=== PATIENT | male | born 1945 | race Caucasian/White ===

== ENCOUNTER 2016-03-21 10:46 | Day surgery (SDC) | payer MEDICARE, OTHER ==
[2016-03-17 13:09] VITALS: BMI 31.4
[~2016-03-21 10:46] MED LIST: DEXAMETHASONE SOD PHOSPHATE 10 MG/ML 1 ML VIAL IV ONE; LIDOCAINE 1% 20 ML VIAL (10MG/ML) FOR IV START INTRADERMA PRN; ONDANSETRON 4 MG/2 ML VIAL IVP ONE; SCOPOLAMINE 1.5MG/72HR PATCH TRANSDERM ONE; ceFAZolin 3 GM in SODIUM CHLORIDE 0.9% 100 ML IVPB ONE
[2016-03-21] MEDS: LACTATED RINGERS 1,000 ML IV ONE ×2 (12:05→12:50)
[2016-03-21] MEDS ORDERED: LIDOCAINE 1% 20 ML VIAL (10MG/ML) FOR IV START INTRADERMA ONE (12:06)
[2016-03-21] MEDS ORDERED: HEPARIN SODIUM,PORCINE 5,000 UNIT/ML 1 ML VIAL SQ ONE (12:29)
--- NOTE | 2016-03-21 12:32 | P.GSHP ---
History of Present Illness H&P Date: 03/21/16 Chief Complaint: Cholelithiasis, cholecystitis This is a 70-year-old male who was recently seen in the [facility] emergency room. He is diagnosed with cholecystitis and cholelithiasis. Patient had ultrasound performed showed evidence of cholelithiasis. He presents today for laparoscopic cholecystectomy. Past Medical History Past Medical History: GERD/Reflux, Hyperlipidemia, Hypertension, Osteoarthritis (OA) Additional Past Medical History / Comment(s): In 2000 hx. of kidney stones. History of Any Multi-Drug Resistant Organisms: None Reported Past Surgical History: Tonsillectomy Additional Past Surgical History / Comment(s): Pin in L side side of jaw & cheek. Past Anesthesia/Blood Transfusion Reactions: No Reported Reaction Past Psychological History: No Psychological Hx Reported Smoking Status: Current some day smoker Past Alcohol Use History: Occasional Additional Past Alcohol Use History / Comment(s): 1 cigar q 2 weeks. Past Drug Use History: None Reported - Past Family History Mother Family Medical History: Unable to Obtain Additional Family Medical History / Comment(s): Was adopted. Medications and Allergies Home Medications Medication Instructions Recorded Confirmed Type Aspirin 81 mg PO DAILY 03/17/16 03/17/16 History Ibuprofen [Motrin] 800 mg PO DAILY PRN 03/17/16 03/17/16 History Lisinopril [Prinivil] 20 mg PO DAILY 03/17/16 03/17/16 History Omeprazole [PriLOSEC] 20 mg PO AC-BRKFST 03/17/16 03/17/16 History Simvastatin [Zocor] 20 mg PO DAILY 03/17/16 03/17/16 History clonazePAM [Clonazepam] 1 mg PO DAILY 03/17/16 03/17/16 History valACYclovir HCL [Valacyclovir] 500 mg PO DAILY 03/17/16 03/17/16 History Allergies Allergy/AdvReac Type Severity Reaction Status Date / Time No Known Allergies Allergy Verified 03/21/16 11:49 Surgical - Exam Vital Signs Temp Pulse Resp BP Pulse Ox 97.6 F 76 18 147/82 98 03/21/16 11:56 03/21/16 11:56 03/21/16 11:56 03/21/16 11:56 03/21/16 11:56 - General well developed, no distress - Eyes PERRL - ENT normal pinna - Neck no masses - Respiratory normal expansion - Cardiovascular Rhythm: regular - Abdomen Abdomen: soft, non tender Assessment and Plan Plan: Cholelithiasis Cholecystitis We'll perform laparoscopic cholecystectomy.
[2016-03-21] MEDS ORDERED: fentaNYL (PF) 50 MCG/ML 2 ML AMP ONE (12:50)
[2016-03-21] MEDS ORDERED: ePHEDrine 50 MG/ML 1 ML AMP ONE (12:50)
[2016-03-21] MEDS ORDERED: SUCCINYLCHOLINE CHLORIDE VIAL 200 MG/10 ML VIAL IV ONE (12:50)
[2016-03-21] MEDS ORDERED: LIDOCAINE 1% INJ 10MG/ML (20 ML MDV) ONE (12:50)
[2016-03-21] MEDS ORDERED: GLYCOPYRROLATE 0.2 MG/ML 2 ML VIAL ONE (12:50)
[2016-03-21] MEDS ORDERED: PROPOFOL 10 MG/ML 20 ML VIAL IV ONE (12:50)
[2016-03-21] MEDS ORDERED: NEOSTIGMINE 1 MG/ML 10 ML VIAL ONE (12:50)
[2016-03-21] MEDS ORDERED: MIDAZOLAM 2 MG/2 ML VIAL ONE (12:50)
[2016-03-21] MEDS ORDERED: ROCURONIUM BROMIDE 10 MG/ML 10 ML VIAL IV ONE (12:50)
[2016-03-21] MEDS ORDERED: ATROPINE SULFATE 0.4 MG/ML 1 ML VIAL ONE (12:50)
[2016-03-21] MEDS ORDERED: BUPIVACAIN-EPI 0.25%-1:200,000 30 ML VIAL SQ ONE ×3 (12:59)
[2016-03-21] MEDS ORDERED: LACTATED RINGERS 1,000 ML IV ONE ×2 (13:19→16:11)
--- NOTE | 2016-03-21 13:35 | P.OP ---
Date of Procedure: 03/21/16 Preoperative Diagnosis: Cholecystitis Cholelithiasis Postoperative Diagnosis: Cholecystitis Cholelithiasis Procedure(s) Performed: Laparoscopic cholecystectomy Anesthesia: MAC Surgeon: Jose Faye Estimated Blood Loss (ml): 5 Pathology: other (Gallbladder) Condition: stable Disposition: PACU Description of Procedure: The patient was placed on the operating table. The patient received a general endotracheal tube anesthesia. The patients abdomen was prepped and draped in the usual sterile fashion. Through an infraumbilical stab incision, the fascia of the anterior abdominal wall was grasped with a pair of Kochers and then the Veress needle was placed in the peritoneal cavity. Position of the Veress needle was confirmed with positive drop test. The abdomen was then insufflated. After adequate insufflation, the 10 mm trocar was placed in the peritoneal cavity. Following this the laparoscope was placed in the peritoneal cavity. The patient was placed in the head-up, right side up position and then a 5 mm trocar was placed in the right lateral and right subcostal position under direct visualization. A 8 mm trocar was placed in the epigastric position. The gallbladder was grasped in the fundus and infundibulum. Traction on the gallbladder was placed in the lateral and the cephalad positions. The triangle of Calot was visualized.. The cystic duct was bluntly dissected until the union of the cystic duct and common bile duct was seen. The cystic duct was then divided and sealed with the Harmonic scissors. A PDS Endoloop was then placed throughout the cystic duct stump. The cystic artery divided and sealed with the Harmonic scissors. The gallbladder was then removed from the liver bed using Harmonic scissors. The gallbladder was then extracted through the epigastric port site. Operative field was checked for any bleeding spots and Harmonic scissors was used to coagulate the liver bed. The abdomen was irrigated. The trocars were removed. The skin was closed using interrupted 3-0 Vicryl suture. Dermabond dressing were applied. The patient tolerated the procedure well.
[2016-03-21] MEDS: HYDROmorphone 1 MG/ML 1 ML SYRINGE IVP PRN ×4 (13:38→14:37)
[2016-03-21 13:49] VITALS: RESP 16
[2016-03-21 13:53] VITALS: TEMP 97.5
[2016-03-21] MEDS ORDERED: HYDROcodone/APAP 7.5-325MG 1 EACH TAB PO ONE (15:25)
[2016-03-21 16:11] VITALS: BP 135/91; PULSE 90
== END 2016-03-21 16:43 | disposition home or self-care (01) ==
LOC: OR 10:46
PROVIDERS: ATTEND Surgery
DX: K80.10 Calculus of gallbladder with chronic cholecystitis without obstruction (principal); K21.9 Gastro-esophageal reflux disease without esophagitis; E78.5 Hyperlipidemia, unspecified; I10 Essential (primary) hypertension; M19.90 Unspecified osteoarthritis, unspecified site; Z72.0 Tobacco use; Z79.1 Long term (current) use of non-steroidal anti-inflammatories (NSAID); Z79.82 Long term (current) use of aspirin; Z79.899 Other long term (current) drug therapy
CPT/HCPCS: 88304; 47562; J2250; J0330; J0461; J1644; J1100; J2710; J0690; J2405; J2001; J3010; J1170; J2704

== ENCOUNTER → 2017-10-25 | Outpatient (CLI) | payer MEDICARE, OTHER ==
--- NOTE | 2017-10-25 16:27 | MR ---
EXAMINATION TYPE: MR knee RT wo con DATE OF EXAM: 10/25/2017 COMPARISON: None HISTORY: Pain in right knee TECHNIQUE: Multiplanar, multisequence imaging of the right knee is performed without IV contrast. FINDINGS: MEDIAL MENISCUS: Anterior horn medial meniscus appears normal. There is oblique signal complex patter n which appears to extend to the inferior articular surface within the posterior horn medial meniscus compatible with complex tear. LATERAL MENISCUS: Anterior and posterior horns are intact without tear. CRUCIATE LIGAMENTS: The anterior and posterior cruciate ligaments are intact and unremarkable. COLLATERAL LIGAMENTS: The medial collateral ligament and lateral collateral ligament complex are inta ct and unremarkable. EXTENSOR MECHANISM: Visualized quadriceps and patellar tendons are intact. EFFUSION: Small joint effusion is present. There may be some minimal soft tissue swelling. Note is m mp of varicosities within the lower thigh within the [id number] POPLITEAL CYST: No popliteal/patel cyst. TRICOMPARTMENT SPACES: There is narrowing of the medial compartment joint space compatible some osteo arthritic degenerative change. Milder narrowing is present along the lateral compartment joint space. Patellofemoral joint space appears preserved. CARTILAGE: There is diffuse thinning of the medial lateral compartment articular cartilage, more so o n the medial side. BONE MARROW SIGNAL: No focal abnormal marrow signal is appreciated. OTHER: No additional significant abnormality is appreciated. IMPRESSION: 1. Small joint effusion. 2. Complex oblique tear posterior horn medial meniscus communication with the inferior articular surf sheldon. 3. Osteoarthritic degenerative change medial compartment
== END | disposition home or self-care (01) ==
LOC: RADMRIMAIN 09:10
PROVIDERS: ATTEND Orthopaedic Surgery
DX: S83.241A Other tear of medial meniscus, current injury, right knee, initial encounter (principal); M17.11 Unilateral primary osteoarthritis, right knee

== ENCOUNTER → 2017-11-01 | Outpatient (CLI) | payer MEDICARE, OTHER ==
[2017-11-01 14:53] LABS: Basophils # (A) 0.1 k/uL (0-0.2); Basophils % (A) 1 %; Eosinophils # (A) 0.2 k/uL (0-0.7); Eosinophils % (A) 3 %; HCT 47.8 % (39.0-53.0); HGB 15.2 gm/dL (13.0-17.5); Lymphocytes # (A) 1.8 k/uL (1.0-4.8); Lymphocytes % (A) 29 %; MCH 30.8 pg (25.0-35.0); MCHC 31.7 g/dL (31.0-37.0); MCV 97.2 fL (80.0-100.0); Mean Platelet Volume 6.7; Monocytes # (A) 0.4 k/uL (0-1.0); Monocytes % (A) 6 %; Neutrophils # (A) 3.6 k/uL (1.3-7.7); Neutrophils % (A) 59 %; Platelet Count 249 k/uL (150-450); RBC 4.92 m/uL (4.30-5.90); RDW 14.2 % (11.5-15.5); WBC 6.1 k/uL (3.8-10.6)
[2017-11-01 15:02] LABS: Potassium 4.7 mmol/L (3.5-5.1)
== END | disposition home or self-care (01) ==
LOC: LABPAT 14:02
PROVIDERS: ATTEND Orthopaedic Surgery
DX: Z01.818 Encounter for other preprocedural examination (principal); Z01.812 Encounter for preprocedural laboratory examination; M23.91 Unspecified internal derangement of right knee
CPT/HCPCS: 36415; 80051; 85025; 93005

== ENCOUNTER 2017-11-15 10:13 | Day surgery (SDC) | payer MEDICARE, OTHER ==
[2017-11-10 10:24] VITALS: BMI 32.0
--- NOTE | 2017-11-14 14:21 | HP ---
HISTORY AND PHYSICAL DATE OF SURGERY: 11/15/2017 Romero Patterson is a 72-year-old patient seen with progressive right knee pain. Treatment options were discussed. Patient elected to proceed with right knee arthroscopy. Consent regarding the procedure was obtained. PAST MEDICAL HISTORY: Hypertension, hyperlipidemia. PAST SURGICAL HISTORY: Right knee arthroscopy. . DAILY MEDICATIONS: 1. Lisinopril. 2. Omeprazole. 3. Simvastatin. ALLERGIES: None reported. SOCIAL HISTORY: Patient denies current tobacco use. PHYSICAL EVALUATION OF THE RIGHT KNEE: Range of motion is 0 to 130 degrees. Mild effusion. Tenderness along the medial joint line. Positive medial Umer's. Ligaments stable. Hip rotation without pain. Distal neurovascular exam intact. RIGHT KNEE RADIOGRAPHS: Revealed mild to moderate osteoarthritic changes. An MRI of the right knee revealed a medial meniscal tear as well as osteoarthritic changes and joint effusion. IMPRESSION: 1. Internal derangement, right knee with medial meniscal tear. 2. Hypertension. 3. Hyperlipidemia. PLAN: Right knee arthroscopy with partial meniscectomy and debridement. MMODL / IJN: [id number] /
[~2017-11-15 10:13] MED LIST changes: -DEXAMETHASONE SOD PHOSPHATE 10 MG/ML 1 ML VIAL IV ONE; +HYDROmorphone 0.5 MG/0.5 ML SYRINGE IVP PRN; +LACTATED RINGERS 1,000 ML IV SCH; -LIDOCAINE 1% 20 ML VIAL (10MG/ML) FOR IV START INTRADERMA PRN; -SCOPOLAMINE 1.5MG/72HR PATCH TRANSDERM ONE; -ceFAZolin 3 GM in SODIUM CHLORIDE 0.9% 100 ML IVPB ONE; +fentaNYL (PF) 50 MCG/ML 2 ML AMP IV PRN
[2017-11-15] MEDS ORDERED: ONDANSETRON 4 MG/2 ML VIAL ONE (11:11)
[2017-11-15] MEDS ORDERED: LIDOCAINE 1% 20 ML VIAL (10MG/ML) FOR IV START INTRADERMA ONE (11:55)
[2017-11-15] MEDS ORDERED: PROPOFOL 10 MG/ML 20 ML VIAL IV ONE (12:38)
[2017-11-15] MEDS ORDERED: SUCCINYLCHOLINE CHLORIDE 100 MG/5 ML SYR IV ONE (12:38)
[2017-11-15] MEDS ORDERED: fentaNYL (PF) 50 MCG/ML 2 ML AMP ONE (12:38)
[2017-11-15] MEDS ORDERED: MIDAZOLAM 2 MG/2 ML VIAL ONE (12:38)
[2017-11-15] MEDS ORDERED: BUPIVACAIN-EPI 0.25%-1:200,000 30 ML VIAL SQ ONE (12:38)
[2017-11-15] MEDS ORDERED: LIDOCAINE 1% INJ 10MG/ML (20 ML MDV) ONE (12:38)
[2017-11-15] MEDS ORDERED: HYDROmorphone (PF) 1 MG/ML ONE (12:38)
--- NOTE | 2017-11-15 13:25 | P.OP ---
Date of Procedure: 11/15/17 Preoperative Diagnosis: Internal derangement right knee Postoperative Diagnosis: 1. Tear medial and lateral meniscus right knee 2. Grade 4 chondromalacia medial femoral condyle right knee 3. Grade 2 chondromalacia patella right knee 4. Reactive synovitis medial, lateral and suprapatellar compartments right knee Procedure(s) Performed: 1. Arthroscopic partial medial and lateral meniscectomy right knee 2. Arthroscopic chondroplasty medial femoral condyle right knee 3. Arthroscopic microfracture medial femoral condyle right knee 4. Arthroscopic chondroplasty patella right knee 5. Arthroscopic partial synovectomy medial, lateral and suprapatellar compartments right knee Anesthesia: PEPEA, local Surgeon: Marcial Alegre Estimated Blood Loss (ml): 6 Pathology: none sent Condition: stable Disposition: PACU Indications for Procedure: 72-year-old patient seen with progressive right knee pain. After treatment options were discussed, he elected to proceed with arthroscopy. Operative Findings: see description of procedure Description of Procedure: Patient was taken to the operative suite. Patient underwent a general anesthetic by the department of anesthesia. Patient was given preoperative antibiotics. The right lower extremity was placed in a well-padded arthroscopic leg canales. The right leg was prepped and draped in the normal sterile orthopedic fashion. A lateral parapatellar and suprapatellar incision was made. Trochars were inserted. Arthroscopy was initiated. Suprapatellar pouch revealed diffuse thick reactive synovitis. The patellofemoral joint appeared to articulate congruently. There was grade 2 chondromalacia of the patella with some osteochondral tears present. The scope was guided into the medial gutter. No loose bodies or plica were identified. The scope was then guided into the medial compartment. A medial parapatellar incision was made. Trocar inserted followed by probe. There was a complex tear posterior horn medial meniscus extending into the midbody. There were grade 3/4 chondromalacia changes the medial femoral condyle with some osteochondral tears present. There was thick reactive synovitis anteriorly. I performed a partial medial meniscectomy down to stable tissue. I performed a chondroplasty of the medial femoral condyle down to stable tissue. I performed a partial synovectomy decompressing the thick reactive synovitis anteriorly. The residual meniscus was stable. There was good decompression of the synovitis. There was one area weightbearing surface medial femoral condyle measuring approximately 8 mm of exposed bone. I performed a microfracture to that area penetrating the bone which cause some bleeding in the area. The residual osteochondral surface was stable. Scope and probe were then guided into the intercondylar notch. Cruciates were identified, probed and found to be stable. The scope and probe were then guided into lateral compartment. There were some radial tears midbody lateral meniscus. There was reactive synovitis anteriorly. There was no significant chondromalacia present. The osteochondral surface was stable. I performed a partial lateral meniscectomy down to stable tissue. I performed a partial synovectomy decompressing the reactive synovitis. The residual meniscus was stable. There was good decompression of the synovitis. The scope was in guided back into the suprapatellar compartment. I introduced the motorized shaver into the super patellar compartment. I debrided some piecemeal fragments of meniscus I encountered. I performed a partial synovectomy. The residual osteochondral surface of patella was stable. There was good decompression of the synovitis. I now took one more look on the entire knee, no residual debris. Instruments were now removed from the joint. The joint was infiltrated with .25% Marcaine. Steri-Strips were applied to the portal sites. Sterile dressings were applied. The patient was placed into a SHANICE hose. No tourniquet was utilized. The patient was awakened, transferred to a bed and taken to recovery stable satisfactory condition.
[2017-11-15 13:31] VITALS: TEMP 97.7
[2017-11-15] MEDS ORDERED: LACTATED RINGERS 1,000 ML IV ONE (14:21)
[2017-11-15 14:42] VITALS: RESP 18
[2017-11-15] MEDS ORDERED: HYDROcodone/APAP 5-325MG 1 EACH TAB PO ONE (15:11)
[2017-11-15 15:46] VITALS: BP 118/73; PULSE 66
== END 2017-11-15 15:56 | disposition home or self-care (01) ==
LOC: OR 10:13
PROVIDERS: ATTEND Orthopaedic Surgery
DX: S83.241A Other tear of medial meniscus, current injury, right knee, initial encounter (principal); S83.281A Other tear of lateral meniscus, current injury, right knee, initial encounter; X58.XXXA Exposure to other specified factors, initial encounter; M22.41 Chondromalacia patellae, right knee; M65.861 Other synovitis and tenosynovitis, right lower leg; I10 Essential (primary) hypertension; F17.200 Nicotine dependence, unspecified, uncomplicated; K21.9 Gastro-esophageal reflux disease without esophagitis; E78.5 Hyperlipidemia, unspecified; Z79.899 Other long term (current) drug therapy
CPT/HCPCS: 29880; 29879; J2250; J0690; J2405; J2001; J3010; J1170 ×2; J0330; J2704

== ENCOUNTER → 2018-05-22 | Outpatient (CLI) | payer MEDICARE | END | disposition home or self-care (01) | LOC: LABPAT 14:13 | PROVIDERS: ATTEND Orthopaedic Surgery | DX: Z01.812 Encounter for preprocedural laboratory examination (principal) | CPT/HCPCS: 87070 ==

== ENCOUNTER 2018-06-11 08:59 | Inpatient (IN) | payer MEDICARE ==
--- NOTE | 2018-06-10 13:26 | HP ---
HISTORY AND PHYSICAL REASON FOR ADMISSION: Surgery is scheduled for 06/11/2018 Romero Patterson is a 73-year-old patient seen symptomatic with right knee osteoarthritis. We discussed treatment options. He elected to proceed with right total knee arthroplasty. Consent was obtained. Medical clearance provided by Dr. Connolly. PAST MEDICAL HISTORY: Hypertension, hyperlipidemia, gastroesophageal reflux disease. PAST SURGICAL HISTORY: Right knee arthroscopy. DAILY MEDICATIONS: Lisinopril, omeprazole, simvastatin. ALLERGIES: None. SOCIAL HISTORY: Denies current tobacco use. PHYSICAL EXAMINATION: Evaluation of the right knee is range of motion is 0 to 125 degrees. Tenderness along the medial joint line. Crepitus medial and patellofemoral compartments with range of motion. Pain with patellofemoral compression. Ligaments stable. Hip rotation without pain. Distal neurovascular exam is intact. RADIOGRAPHS: Radiographs of the right knee revealed moderate to severe medial compartment and moderate patellofemoral compartment osteoarthritis. IMPRESSION: 1. Right knee osteoarthritis. 2. Hypertension. 3. Hyperlipidemia. 4. Gastroesophageal reflux disease. PLAN: Right total knee arthroplasty. Surgery scheduled for 06/11/2018. MMODL / IJN: [id number] /
[~2018-06-11 08:59] MED LIST changes: +ACETAMINOPHEN TAB 500 MG TAB PO ONE; +DEXAMETHASONE SOD PHOSPHATE 10 MG/ML 1 ML VIAL IV ONE; -HYDROmorphone 0.5 MG/0.5 ML SYRINGE IVP PRN; -LACTATED RINGERS 1,000 ML IV SCH; +MELOXICAM 7.5 MG TAB PO ONE; +MIDAZOLAM (PF) 2 MG/2 ML VIAL IV PRN; +TRANEXAMIC ACID 1,000 MG in SODIUM CHLORIDE 0.9% 100 ML IVPB ONE; +ceFAZolin 3 GM in SODIUM CHLORIDE 0.9% 100 ML IVPB ONE; -fentaNYL (PF) 50 MCG/ML 2 ML AMP IV PRN
[2018-06-11] MEDS ORDERED: LIDOCAINE 1% 20 ML VIAL (10MG/ML) FOR IV START INTRADERMA ONE (09:46)
[2018-06-11] MEDS: LACTATED RINGERS 1,000 ML IV SCH ×3 (09:46→22:28)
[2018-06-11] MEDS ORDERED: ROPIVACAINE 246.25 MG, EPINEPHrine 0.5 MG, KETOROLAC 30 MG, cloNIDine HCL/PF 80 MCG, WA... MISCELLANE ONE ×5 (09:55)
[2018-06-11] MEDS ORDERED: fentaNYL (PF) 50 MCG/ML 2 ML AMP IVP ONE (10:01)
[2018-06-11] MEDS ORDERED: PROPOFOL 10 MG/ML 20 ML VIAL IV ONE (11:04)
[2018-06-11] MEDS ORDERED: MIDAZOLAM 2 MG/2 ML VIAL ONE (11:04)
[2018-06-11] MEDS ORDERED: SODIUM CHLORIDE 0.9% 100 ML BAG ONE (11:04)
[2018-06-11] MEDS ORDERED: fentaNYL (PF) 50 MCG/ML 2 ML AMP ONE (11:04)
[2018-06-11] MEDS ORDERED: TRANEXAMIC ACID 1,000 MG/10 ML VIAL ONE (11:04)
[2018-06-11] MEDS ORDERED: ceFAZolin 3,000 MG in SODIUM CHLORIDE 0.9% IRRIGATIO 3,000 ML IRRIGATION ONE (11:40)
[2018-06-11] MEDS ORDERED: LACTATED RINGERS 1,000 ML IV ONE (12:41)
--- NOTE | 2018-06-11 13:29 | P.OP ---
Date of Procedure: 06/11/18 Preoperative Diagnosis: Right knee osteoarthritis Postoperative Diagnosis: Same Procedure(s) Performed: Right total knee arthroplasty Implants: 1. Microport evolution size 8 right cemented femur 2. Microport evolution size 8+ cemented tibial baseplate 3. Microport evolution size 8 MP CS 12 mm polyethylene tibial insert 4. Microport advance 41 mm all polyethylene cemented patella Anesthesia: regional (Adductor canal catheter), local, spinal Surgeon: Marcial Alegre Chief Of Party #1: Jensen Fisher Estimated Blood Loss (ml): 40 Pathology: other (Bone) Condition: stable Disposition: PACU Indications for Procedure: 73-year-old patient seen with symptomatic right knee osteoarthritis. After treatment options were discussed, he elected to proceed with total knee arthroplasty. Operative Findings: See description of procedure Description of Procedure: Patient was taken to the operative suite after having an adductor canal catheter placed by the department of anesthesia for postoperative pain management. Patient underwent a spinal anesthetic by the department of anesthesia. Patient was given preoperative IV intake antibiotics and TXA. A well-padded tourniquet was placed about the right lower extremity. The lower extremity was then prepped and draped in the normal sterile orthopedic fashion. The extremity was elevated, a tourniquet was insufflated to 300. A standard anterior incision was made sharply through skin. Dissection was taken down through the subcutaneous soft tissues down to the extensor mechanism. A medial arthrotomy was performed, patella was everted and knee was flexed. There was advanced osteoarthritis noted. I introduced my distal intramedullary femoral drill. I then introduced the distal femoral cutting jig. Jacob ORTIZ secured the cutting jig with 2 pins. I held retractors in position while Jacob ORTIZ performed the distal femoral resection through the guide area we now removed her distal femoral cutting guide. We now placed our 4-in-1 femoral cutting block and positioned and it was secured with 2 pins by Jacob ORTIZ while I held the block in position. The distal femoral finishing was now completed. A proximal tibial cutting guide was positioned. I held the guide in the appropriate position with both hands well Jacob ORTIZ inserted stabilizing pins into the guide. Proximal tibial cut was made. We now placed a trial femoral component into position, along with an appropriate size tibial tray and insert. We now took the knee through range of motion and had full extension good flexion and good overall soft tissue balance noted. The patella was everted and stabilized with 2 towel clips held by Jacob ORTIZ while I performed a flush with patellar quad tendon utilizing a fresh sawblade. We templated the patella, appropriate drill holes were made. An appropriate trial patella was positioned, knee was taken through full range of motion with the patella tracking very nicely. The trial patella was removed. Drill holes were made through the femoral component. All trial components were removed after marking off the appropriate rotation of the tibia. Retractors were now positioned along the proximal tibia. An appropriate keel punch was made with the appropriate size tibial guide by myself on Jacob ORTIZ assisted by holding retractors. At this point appropriate size implants were chosen and opened. The joint was irrigated copiously with pulse lavage mechanical irrigation. The posterior capsule was infiltrated with local analgesic. The wound was irrigated with pulse lavage mechanical irrigation. We mixed antibiotic methylmethacrylate. We placed the knee into flexion. We placed multiple retractors assisted by Jacob ORTIZ to expose the proximal tibia. Once the methyl methacrylate was ready, the tibial component was cemented into place removing any excess methylmethacrylate form by both myself and Jacob ORTIZ. The femoral component was cemented into place removing the removing any excess methylmethacrylate performed by both myself and Jacob ORTIZ. We then inserted the appropriate size polyethylene tibial insert. We made sure that it was locked into position. We took the knee into full extension, and then back in a flexion making sure we had removed any excess methylmethacrylate. The patellar component was then cemented down and secured w ith clamp. Excess methylmethacrylate removed. We kept the knee in full extension, patellar clamp in position until methylmethacrylate had hardened. Once it had hardened the patellar clamp was removed. The knee was taken through full range of motion. The patella tracked nicely. There was good soft tissue balancing. The tourniquet was now released. Additional hemostasis was achieved via electrocautery. A second gram of TXA was given. The wound again was irrigated with pulse lavage mechanical irrigation. The superficial soft tissues were infiltrated local analgesic. The extensor mechanism was repaired with Vicryl. We checked the repair with range of motion and it was stable. The subcutaneous soft tissues were repaired with Vicryl in layers. The skin was approximated with pernio/Dermabond. Sterile dressings were applied followed by loose web roll and Curtis bandage. The patient was transferred to a bed, and taken to recovery in stable and satisfactory condition. Jacob ORTIZ assisted with this complex procedure.
[2018-06-11] MEDS ORDERED: ONDANSETRON 4 MG/2 ML VIAL IVP PRN (13:30)
[2018-06-11] MEDS ORDERED: NALOXONE 0.4 MG/ML 1 ML VIAL IV PRN (13:30)
[2018-06-11] MEDS ORDERED: HYDROmorphone 0.5 MG/0.5 ML SYRINGE IVP PRN ×2 (13:30)
--- NOTE | 2018-06-11 13:38 | P.ONQ ---
Anesthesiology Proc Note - PNB - Peripheral Nerve Block Performed Right Adductor Canal Infusion Time Out Performed: Yes Indication: Acute Post-Operative Pain, Dx/Pain Location, Requested by physician Sedation Type: Sedate with meaningful contact maintained Preparation: Sterile Prep Position: Supine Catheter: Indwelling Needle Types: Jaret Needle Size: 100mm (4") Needle Gauge: 21 Technique: Ultrasound Injectate: 0.5% Ropivacaine (see comment for volume) Blood Aspirated: No Pain Paresthesia on Injection Noted: No Resistance on Injection: Normal Events: Uneventful and Well Tolerated
[2018-06-11] MEDS ORDERED: ROPIVACAINE 1,100 MG, SODIUM CHLORIDE 0.9% 500 ML 330 ML MISCELLANE PRN ×2 (13:39)
[2018-06-11] MEDS: HYDROmorphone 0.5 MG/0.5 ML SYRINGE IVP PRN ×4 (13:52→14:42)
--- NOTE | 2018-06-11 14:14 | XR ---
Limited right knee HISTORY: Postop knee arthroplasty 2 views the right knee Patient is status post right knee arthroplasty. Lucency is present in the soft tissues. There are ove rlying vy. Alignment is anatomic. IMPRESSION: Orthopedic follow-up.
[2018-06-11 15:34] VITALS: BMI 33.3
[2018-06-11] MEDS: traMADol 50 MG TAB PO SCH ×2 (18:00→22:29)
[2018-06-11] MEDS: clonazePAM 1 MG TAB PO SCH (22:22)
[2018-06-11] MEDS: ceFAZolin 3 GM in SODIUM CHLORIDE 0.9% 100 ML IVPB SCH (22:22)
[2018-06-11] MEDS: SENNOSIDES-DOCUSATE SODIUM 1 EACH TAB PO SCH (22:22)
[2018-06-11] MEDS: ENOXAPARIN 30 MG/0.3 ML SYRINGE SQ SCH (22:22)
[2018-06-11] MEDS: ATORVASTATIN 10 MG TAB PO SCH (22:23)
[2018-06-12] MEDS: HYDROmorphone 0.5 MG/0.5 ML SYRINGE IVP PRN ×3 (01:04→15:42)
--- NOTE | 2018-06-12 01:13 | CONS ---
CONSULTATION DATE OF CONSULTATION: June 11, 2018. REASON FOR CONSULTATION: Medical management requested by Dr. Alegre. CONSULTATION: This is a pleasant 73-year-old, of Dr. Latisha Connolly. Chronic stable medical conditions include GERD, hypertension, hyperlipidemia, restless legs syndrome. The patient did undergo a right total knee arthroplasty. Postprocedure pain is controlled. No nausea, vomiting, did tolerate his supper. Denies any cardiac history. Sitting on bed restful. REVIEW OF SYSTEMS: CONSTITUTIONAL: None. HEENT: None. RESPIRATORY: None. CARDIOVASCULAR: None. GENITOURINARY: None. GENITOURINARY: None. MUSCULOSKELETAL: Arthritic pain in joints. DERMATOLOGICAL, HEMATOLOGIC, LYMPHATIC: none. PSYCHIATRY none. NEUROLOGICAL: None. PAST MEDICAL HISTORY: Past medical history of GERD, hyperlipidemia, hypertension, osteoarthritis, kidney stones more than 19 years ago, restless legs syndrome. PAST SURGICAL HISTORY: Cholecystectomy, tonsillectomy, pain in the left side of the , colonoscopy, right knee arthroscopy. SOCIAL HISTORY: Smokes a cigar every 2 weeks. Lives with Pat. Used to work in a power plant. FAMILY HISTORY: The patient is adopted. HOME MEDICATIONS: 1. Valacyclovir 500 mg p.o. daily. 2. Clonazepam 1 mg p.o. at bedtime. 3. Zocor 20 mg at bedtime. 4. Prilosec 20 mg with breakfast. 5. Prinivil 20 mg p.o. daily. 6. Motrin 800 mg p.o. b.i.d. p.r.n. 7. [place]ton 5 one tablet q.6h p.r.n. 8. Tylenol 1000 mg q.4 hours 6 p.r.n. ALLERGIES: None. PHYSICAL EXAMINATION: VITAL SIGNS: On examination temp 97.7, pulse 85, respiration 17, blood pressure 125/76, pulse ox 95% on room air. GENERAL APPEARANCE: Well built, BMI 32.6, sitting up, comfortable. EYES: Pupils equal. Conjunctivae normal. HEENT: External appearance of nose and ears normal. Oral cavity normal. NECK: JVD not raised. Mass not palpable. RESPIRATORY: Effort normal. LUNGS are clear. CARDIOVASCULAR: First and second sounds normal. No edema. ABDOMEN soft, nontender. Liver and spleen not palpable. LYMPHATICS: No lymph nodes palpable in the neck and axilla. PSYCHIATRY: Alert and oriented x3. Mood and affect normal. NEUROLOGICAL: Pupils equal. Cranial nerves grossly intact. Power and sensation grossly intact. MUSCULOSKELETAL: Dressing of the right knee. Evidence of osteoarthritis especially in the hands. INVESTIGATIONS: No blood work. ASSESSMENT: 1. Right total knee arthroplasty. 2. Gastroesophageal reflux disease. 3. Essential hypertension. 4. Hyperlipidemia. 5. Primary osteoarthritis. 6. Restless legs syndrome. 7. Obesity; BMI 32.6. PLAN: Home medications are resumed. Care was discussed with the patient. The patient is on Lovenox for DVT prophylaxis per Dr. Alegre. Care was discussed with the patient. Questions were answered. Thank you Dr. Alegre. Copy to Dr. Connolly. TALITA / KAROLN: [id number] /
[2018-06-12] MEDS: HYDROcodone/APAP 5-325MG 1 EACH TAB PO PRN (03:38)
[2018-06-12] MEDS: LACTATED RINGERS 1,000 ML IV SCH ×3 (04:05→22:10)
[2018-06-12] MEDS: ceFAZolin 3 GM in SODIUM CHLORIDE 0.9% 100 ML IVPB SCH (04:44)
[2018-06-12] MEDS: MELOXICAM 7.5 MG TAB PO SCH (07:34)
[2018-06-12] MEDS: PANTOPRAZOLE 40 MG TABLET PO SCH (07:34)
[2018-06-12] MEDS: LISINOPRIL 20 MG TAB PO SCH (07:34)
[2018-06-12] MEDS: traMADol 50 MG TAB PO SCH ×4 (07:35→22:52)
[2018-06-12] MEDS: ENOXAPARIN 30 MG/0.3 ML SYRINGE SQ SCH ×2 (07:35→20:22)
[2018-06-12] MEDS: valACYclovir 500 MG TAB PO SCH (07:35)
--- NOTE | 2018-06-12 10:26 | P.PN ---
Subjective Progress Note Date: 06/12/18 Principal diagnosis: Status post right total knee arthroplasty patient evaluated today, is doing well. 7 some difficulty lifting the leg and bending at this time. No some significant swelling. Denies any chest pain or shortness of breath. Objective - Vital Signs Vital signs: Vital Signs Temp 98.2 F 06/12/18 07:00 Pulse 82 06/12/18 07:00 Resp 12 06/12/18 07:00 BP 122/74 06/12/18 07:00 Pulse Ox 95 06/12/18 07:00 Intake & Output 06/11/18 06/12/18 06/12/18 18:59 06:59 18:59 Intake Total 1601 800 Output Total 40 Balance 1561 800 Intake: IV 1601 Intake, IV Titration 800 Amount Lactated Ringers 1,000 ml 800 @ 100 mls/hr IV .Q10H IZZY Rx#:[id number] Output: Estimated Blood Loss 40 Other: Voiding Method Toilet # Voids 2 - Exam Right lower extremity: Opti foam dressing is in good position and condition, no drainage noted on the bandage. Notable swelling over the knee, no significant erythema. Calf is soft, no tenderness with palpation. Plantar flexion, dorsiflexion, EHL, FHL are intact. Sensory exam to light touch throughout the extremity is intact, dorsal pedis pulses 2+. Assessment and Plan Plan: Assessment: Postop day 1 status post right total knee arthroplasty Plan: Pain control, continue oral medication GI and DVT prophylaxis, continue current medication Icing and elevating instructions discussed Wound care instructions discussed Medical recommendations Plan discharge home tomorrow Time with Patient: Less than 30
--- NOTE | 2018-06-12 10:28 | P.PN ---
Progress Note - Text Progress Note Date: 06/12/18 73-year-old male status post left total knee arthroplasty postop day #1. Abductor canal catheter in place patient's pain well-controlled VAS 2-4 out of 10 in severity. This have some right quadricep weakness. He is ambulating well without any difficulty, he has no issues in the L5 or S1 dermatomes with regards to muscle or sensory. Because of a history of lumbar radiculopathy with reading pain in his right leg but denies any history of weakness. Dorsiflexion and plantarflexion are equal bilateral. Follow-up with patient.
[2018-06-12 10:31] LABS: Basophils # (A) 0.1 k/uL (0-0.2); Basophils % (A) 1 %; Eosinophils # (A) 0.2 k/uL (0-0.7); Eosinophils % (A) 2 %; HCT 35.3 % (39.0-53.0); Lymphocytes # (A) 1.7 k/uL (1.0-4.8); Lymphocytes % (A) 17 %; MCH 31.6 pg (25.0-35.0); MCV 92.9 fL (80.0-100.0); Mean Platelet Volume 7.3; Monocytes # (A) 0.6 k/uL (0-1.0); Monocytes % (A) 6 %; Neutrophils # (A) 7.3 k/uL (1.3-7.7); Neutrophils % (A) 74 %; Platelet Count 266 k/uL (150-450); RBC 3.81 m/uL (4.30-5.90); RDW 14.2 % (11.5-15.5); WBC 9.9 k/uL (3.8-10.6)
[2018-06-12] MEDS: HYDROcodone/APAP 7.5-325MG 1 EACH TAB PO PRN ×2 (11:15→20:21)
[2018-06-12 20:03] VITALS: RESP 16
[2018-06-12] MEDS: clonazePAM 1 MG TAB PO SCH (20:22)
[2018-06-12] MEDS: SENNOSIDES-DOCUSATE SODIUM 1 EACH TAB PO SCH (20:22)
[2018-06-12] MEDS: ATORVASTATIN 10 MG TAB PO SCH (20:22)
[2018-06-13] MEDS: HYDROcodone/APAP 7.5-325MG 1 EACH TAB PO PRN ×2 (01:55→07:38)
[2018-06-13] MEDS: LACTATED RINGERS 1,000 ML IV SCH ×2 (06:05)
--- NOTE | 2018-06-13 06:20 | PN ---
PROGRESS NOTE DATE OF SERVICE: 06/12/2018 PRESENTING COMPLAINT: Right knee arthroplasty. INTERVAL HISTORY: Patient is seen by me this afternoon. Some pain is present. Had some swelling of the right leg. Did work with therapy. Did tolerate a diet. No chest pain or short of breath. REVIEW OF SYSTEMS: Done for constitutional, cardiovascular, GI, pulmonary, musculoskeletal; relevant findings as above. CURRENT MEDICATIONS: Current medications are reviewed. PHYSICAL EXAMINATION: On examination, temperature 97.9, pulse 72, respirations 12, blood pressure 111/68, pulse ox 98% on room air. GENERAL APPEARANCE: Sitting in a chair, comfortable. EYES: Pupils equal. Conjunctivae normal. NECK: JVD not raised. Mass not palpable. RESPIRATORY: Effort . Lungs are clear. CARDIOVASCULAR: First and second sounds normal. No edema. ABDOMEN: Soft, nontender. Liver and spleen not palpable. PSYCHIATRY: Alert and oriented x3. Mood and affect normal. MUSCULOSKELETAL: Slight swelling of the right lower extremity. INVESTIGATIONS: White count 9.9, hemoglobin 12. ASSESSMENT: 1. Right total knee arthroplasty. 2. Gastroesophageal reflux disease. 3. Essential hypertension. 4. Hyperlipidemia. 5. Primary osteoarthritis. 6. Restless legs syndrome. 7. Obesity; body mass index 32.6. PLAN: Continue current medication and treatment plan. Care was discussed with the patient. KENNYL / KAROLN: [id number] /
[2018-06-13] MEDS: traMADol 50 MG TAB PO SCH ×2 (08:37→11:57)
[2018-06-13] MEDS: PANTOPRAZOLE 40 MG TABLET PO SCH (08:37)
[2018-06-13] MEDS: valACYclovir 500 MG TAB PO SCH (08:37)
[2018-06-13] MEDS: LISINOPRIL 20 MG TAB PO SCH (08:37)
[2018-06-13] MEDS: MELOXICAM 7.5 MG TAB PO SCH (08:37)
[2018-06-13] MEDS: ENOXAPARIN 30 MG/0.3 ML SYRINGE SQ SCH (08:38)
[2018-06-13 08:52] VITALS: BP 134/76; PULSE 83; TEMP 97.6
[2018-06-13] MEDS: HYDROcodone/APAP 5-325MG 1 EACH TAB PO PRN (11:00)
--- NOTE | 2018-06-13 11:41 | P.PN ---
Subjective Progress Note Date: 06/13/18 Principal diagnosis: Status post right total knee arthroplasty Patient evaluated today, is doing well. Denies any chest pain or shortness of breath. Objective - Vital Signs Vital signs: Vital Signs Temp 97.6 F 06/13/18 07:00 Pulse 83 06/13/18 07:00 Resp 16 06/13/18 07:00 BP 134/76 06/13/18 07:00 Pulse Ox 95 06/13/18 07:00 Intake & Output 06/12/18 06/13/18 06/13/18 18:59 06:59 18:59 Intake Total 836 500 Balance 836 500 Intake: Intake, IV Titration 600 Amount Lactated Ringers 1,000 ml 600 @ 100 mls/hr IV .Q10H IZZY Rx#:[id number] Oral 236 500 Other: Voiding Method Toilet Toilet # Voids 1 - Exam Right lower extremity: Opti foam dressing is in good position and condition, no drainage noted on the bandage. Notable swelling over the knee, no significant erythema. Calf is s oft, no tenderness with palpation. Plantar flexion, dorsiflexion, EHL, FHL are intact. Sensory exam to light touch throughout the extremity is intact, dorsal pedis pulses 2+. - Labs CBC & Chem 7: 06/12/18 09:21 Assessment and Plan Plan: Assessment: Postop day #2 status post right total knee arthroplasty Plan: Pain control, and discharge on oral medication GI and DVT prophylaxis, Eliquis 2.5mg bid for 2 weeks Icing and elevating instructions discussed Wound care instructions discussed Medical recommendations Plan discharge home today Time with Patient: Less than 30
--- NOTE | 2018-06-13 11:45 | P.DS ---
Providers Date of admission: 06/11/18 08:59 Expected date of discharge: 06/13/18 Attending physician: Marcial Alegre Consults: 06/11/18 13:30 Consult Physician Routine Consulting Provider: Latisha Connolly Consult Reason/Comments: Medical management Do you want consulting provider notified?: Yes 06/11/18 15:04 Consult Physician Routine Consulting Provider: Kofi Garcia Consult Reason/Comments: medical management Do you want consulting provider notified?: Yes Primary care physician: Latisha Connolly Hospital Course: Date of admission: 06/11/2018 Date of discharge: 06/13/2018 Admission diagnosis: Status post right total knee arthroplasty Discharge diagnosis: Same Attending physician: Dr. Dr. Alegre Surgical procedures: Right total knee arthroplasty Brief history: Patient is a 73-year-old male with a history of progressive primary right knee osteoarthritis. At this point patient has failed conservative treatment measures and has opted to proceed with a elective right total knee arthroplasty. Hospital course: Details of patient's surgery can be found in operative report. Patient tolerated the procedure well and was subsequently transported to orthope dic floor. Patient's orthopeidc and medical care was provided daily. Patient had daily laboratory tests performed for evaluation of overall blood counts. Patient had daily physical therapy to include strengthening range of motion as well as education with walker ambulation. Patient had daily CPM usage as part of their physical therapy program. Patient was treated with Lovenox for their postoperative DVT prophylaxis during their inpatient stay. Patient was noted to have a relatively uneventful postoperative course. Patient reported satisfactory pain control with oral pain medications by postoperative day 0. Patient showed satisfactory progress with physical therapy. Patient moved steadily through the program and had no difficulty meeting the goals by postoperative day 2. Given patient's otherwise satisfactory course and having met physical therapy goals, plan is to discharge patient home on postoperative day 2. Discharge condition/disposition: Patient will be discharged home in stable condition. Discharge medications: Instructions are given on resumption of patient's normal daily medications per primary care recommendation, in addition patient will be prescribed Townshend 7.5 mg/325 mg, tramadol 50 mg, Colace 100 mg, Eliquis 2.5mg. Discharge instructions: 1. Wound care and infection precautions, keep incision dry and covered while showering, no lotions, creams, moisturizers. No soaking, tubs, pools, hottubs. Do not scrub over the incision. 2. Weight-bear as tolerated with walker / cane until follow-up. 3. Ice and elevate when necessary. Do not exceed 20 minutes per hour with ice pack. 4. Utilize compression sleeve until seen at first follow up appointment. 5. Visiting nursing care. 6. Home physical therapy including home CPM. 7. Pain meds and anticoagulants per prescription. 8. Pain medication has potential to cause constipation. Increase oral fluid and fiber intake. Contact primary care provider if you have not had a bowel movement within 48 hours after discharge 9. No anti-inflammatory medication until discussed at first post operative visit, this including Motrin, Aleve, Mobic, Diclofenac. 10. Follow up in office at 2 weeks postop with Jacob Fisher PA-C 11. Follow up with your primary care doctor 7-10 days after discharge. 12. Contact [facility] with any questions, . Procedures: Right total knee arthroplasty Patient Condition at Discharge: Good Plan - Discharge Summary Discharge Rx Participant: Yes New Discharge Prescriptions: New Docusate [Colace] 100 mg PO DAILY #30 capsule Apixaban [Eliquis] 2.5 mg PO BID #30 tab HYDROcodone/APAP 7.5-325MG [Townshend 7.5] 1 - 2 each PO Q6HR PRN #40 tab PRN Reason: Pain traMADol HCl [Ultram] 50 mg PO Q6H PRN #28 tab PRN Reason: Pain Discontinued Hydrocodone/Acetaminophen [[place] 5-325] 1 tab PO Q6HR PRN PRN Reason: Pain No Action clonazePAM [Clonazepam] 1 mg PO HS valACYclovir HCL [Valacyclovir] 500 mg PO QAM Ibuprofen [Motrin] 800 mg PO TID PRN PRN Reason: Pain Omeprazole [PriLOSEC] 20 mg PO AC-BRKFST Simvastatin [Zocor] 20 mg PO HS Lisinopril [Prinivil] 20 mg PO QAM Acetaminophen [Tylenol] 1,000 mg PO Q4-6H PRN PRN Reason: Pain Discharge Medication List Ibuprofen [Motrin] 800 mg PO TID PRN 03/17/16 [History] Lisinopril [Prinivil] 20 mg PO QAM 03/17/16 [History] Omeprazole [PriLOSEC] 20 mg PO AC-BRKFST 03/17/16 [History] Simvastatin [Zocor] 20 mg PO HS 03/17/16 [History] clonazePAM [Clonazepam] 1 mg PO HS 03/17/16 [History] valACYclovir HCL [Valacyclovir] 500 mg PO QAM 03/17/16 [History] Acetaminophen [Tylenol] 1,000 mg PO Q4-6H PRN 06/06/18 [History] Apixaban [Eliquis] 2.5 mg PO BID #30 tab 06/13/18 [Rx] Docusate [Colace] 100 mg PO DAILY #30 capsule 06/13/18 [Rx] HYDROcodone/APAP 7.5-325MG [[place]shend 7.5] 1 - 2 each PO Q6HR PRN #40 tab 06/13/18 [Rx] traMADol HCl [Ultram] 50 mg PO Q6H PRN #28 tab 06/13/18 [Rx] Follow up Appointment(s)/Referral(s): [facility], [NON-STAFF] - Jensen Fisher, SILVIA [PHYSICIAN SOFTWARE SALES REPRESENTATIVE] - 06/27/18 1:50 pm Activity/Diet/Wound Care/Special Instructions: *Please call [facility] once home to arrange delivery of Continuous Passive Motion (CPM) [facility] - [phone] Orthopedic Discharge Instructions: 1. Wound care and infection precautions, keep incision dry and covered while showering, no lotions, creams, moisturizers. No soaking, pools, hot tubs. Do not scrub over incision. 2. Weight-bear as tolerated with walker / cane until follow-up. 3. Ice and elevate when necessary. Do not exceed 20 minutes per hour with ice pack. 4. Utilize compression sleeve until seen at first follow up appointment. 5. Pain meds and anticoagulants per prescription. 6. Pain medication has potential to cause constipation. Increase oral fluid and fiber intake. Contact primary care provider if you have not had a bowel movement within 48 hours after discharge. 7. No anti-inflammatory medication until discussed at first post operative visit, this including Motrin, Aleve, Mobic, Diclofenac. 8. Follow up in office at 2 weeks postop with Jacob Fisher PA-C 9. Follow up with your primary care doctor 7-10 days after discharge. 10. Contact [facility] with any questions, . Discharge Disposition: HOME WITH HOME HEALTH SERVICES
== END 2018-06-13 15:07 | disposition home health service (06) | DRG 470 ==
LOC: 2ORMAIN 08:59 → 4SSUR 14:55
PROVIDERS: ADMIT Orthopaedic Surgery; ATTEND Orthopaedic Surgery
PROC: 3E0T3BZ Introduction of Anesthetic Agent into Peripheral Nerves and Plexi, Percutaneous Approach (ICD-10-PCS; 2018-06-11)
PROC: 0SRC0J9 Replacement of Right Knee Joint with Synthetic Substitute, Cemented, Open Approach (ICD-10-PCS; principal; 2018-06-11 12:45)
DX: M17.11 Unilateral primary osteoarthritis, right knee (principal); E66.9 Obesity, unspecified; E78.5 Hyperlipidemia, unspecified; F17.290 Nicotine dependence, other tobacco product, uncomplicated; G25.81 Restless legs syndrome; I10 Essential (primary) hypertension; K21.9 Gastro-esophageal reflux disease without esophagitis; Z68.32 Body mass index [BMI] 32.0-32.9, adult; Z79.899 Other long term (current) drug therapy; Z90.49 Acquired absence of other specified parts of digestive tract; Z87.442 Personal history of urinary calculi
CPT/HCPCS: 85025; 88300

== ENCOUNTER → 2018-11-14 | Outpatient (CLI) | payer MEDICARE ==
--- NOTE | 2018-11-15 03:01 | MR ---
EXAMINATION TYPE: MR knee LT wo con DATE OF EXAM: 11/14/2018 COMPARISON: None HISTORY: Left knee pain TECHNIQUE: Multiplanar, multisequence imaging of the left knee is performed without IV contrast. FINDINGS: There is mild knee joint effusion. The anterior and posterior cruciate ligaments are intact. Patella is intact. Joint spaces are fairly normal. There is large horizontal tear of the posterior horn of the medial meniscus extending to the inferior surface. The lateral meniscus is intact. The collateral ligaments appear intact. There is no evidenc e of a fracture. I see no focal bone destruction. There is thin fluid collection posteriorly consiste nt with developing popliteal cyst. There is moderate subcutaneous edema over the anterior knee. There are varicose posterior veins. IMPRESSION: Horizontal tear of the posterior horn medial meniscus. No evidence of ligamentous tear. No fracture. Knee joint effusion and extensive subcutaneous edema.
== END | disposition home or self-care (01) ==
LOC: RADMRIMAIN 06:26
PROVIDERS: ATTEND Orthopaedic Surgery
DX: S83.242A Other tear of medial meniscus, current injury, left knee, initial encounter (principal)

== ENCOUNTER → 2018-12-13 | Outpatient (CLI) | payer MEDICARE ==
[2018-12-13 12:40] LABS: Basophils # (A) 0.1 k/uL (0-0.2); Basophils % (A) 2 %; Eosinophils # (A) 0.2 k/uL (0-0.7); Eosinophils % (A) 4 %; HCT 42.8 % (39.0-53.0); HGB 14.4 gm/dL (13.0-17.5); Lymphocytes # (A) 1.4 k/uL (1.0-4.8); Lymphocytes % (A) 27 %; MCH 31.5 pg (25.0-35.0); MCHC 33.6 g/dL (31.0-37.0); MCV 93.8 fL (80.0-100.0); Mean Platelet Volume 5.9; Monocytes # (A) 0.3 k/uL (0-1.0); Monocytes % (A) 6 %; Neutrophils # (A) 3.2 k/uL (1.3-7.7); Neutrophils % (A) 60 %; Platelet Count 232 k/uL (150-450); RBC 4.57 m/uL (4.30-5.90); RDW 14.3 % (11.5-15.5); WBC 5.4 k/uL (3.8-10.6)
[2018-12-13 12:53] LABS: Potassium 4.2 mmol/L (3.5-5.1)
== END | disposition home or self-care (01) ==
LOC: LABPAT 11:40
PROVIDERS: ATTEND Orthopaedic Surgery
DX: Z01.818 Encounter for other preprocedural examination (principal); Z01.812 Encounter for preprocedural laboratory examination; M23.92 Unspecified internal derangement of left knee
CPT/HCPCS: 36415; 80051; 85025; 93005

== ENCOUNTER 2018-12-19 09:01 | Day surgery (SDC) | payer MEDICARE ==
[2018-12-17 14:45] VITALS: BMI 33.7
--- NOTE | 2018-12-18 13:40 | HP ---
HISTORY AND PHYSICAL Surgery is 12/19/2018. Jerome Patterson is a 73-year-old patient seen with progressive left knee pain. We discussed options for treatment. He elected to proceed with left knee arthroscopy. Consent was obtained. PAST MEDICAL HISTORY: His past medical history is hypertension, hyperlipidemia, gastroesophageal reflux disease. PAST SURGICAL HISTORY: Right knee arthroscopy. DAILY MEDICATIONS: 1. Lisinopril. 2. Omeprazole. 3. Simvastatin. ALLERGIES: None. SOCIAL HISTORY: Denies current tobacco use. PHYSICAL EXAMINATION: Physical evaluation of the left knee range of motion 0 to 130 degrees. Mild effusion. Tenderness medial joint line. Positive medial Umer's. Ligaments stable. Hip rotation without pain. Distal neurovascular exam is intact. Radiographs of the left knee reveal moderate osteoarthritic changes. Left knee MRI revealed medial meniscal tear. IMPRESSION: 1. Internal derangement left knee with medial meniscal tear. 2. Hypertension. 3. Hyperlipidemia. 4. Gastroesophageal reflux disease. PLAN: Left knee arthroscopy with partial meniscectomy and debridement. MMODL / IJN: [id number] /
[~2018-12-19 09:01] MED LIST changes: -ACETAMINOPHEN TAB 500 MG TAB PO ONE; -DEXAMETHASONE SOD PHOSPHATE 10 MG/ML 1 ML VIAL IV ONE; -MELOXICAM 7.5 MG TAB PO ONE; -MIDAZOLAM (PF) 2 MG/2 ML VIAL IV PRN; -ONDANSETRON 4 MG/2 ML VIAL IVP ONE; -TRANEXAMIC ACID 1,000 MG in SODIUM CHLORIDE 0.9% 100 ML IVPB ONE
[2018-12-19] MEDS ORDERED: MIDAZOLAM 2 MG/2 ML VIAL IV PRN (09:15)
[2018-12-19] MEDS ORDERED: LACTATED RINGERS 1,000 ML IV SCH (09:15)
[2018-12-19] MEDS ORDERED: ONDANSETRON 4 MG/2 ML VIAL IVP ONE (09:15)
[2018-12-19] MEDS ORDERED: DEXAMETHASONE SOD PHOSPHATE 10 MG/ML 1 ML VIAL IV ONE (09:15)
[2018-12-19] MEDS ORDERED: SCOPOLAMINE 1.5MG/72HR PATCH TRANSDERM ONE (09:15)
[2018-12-19] MEDS ORDERED: LIDOCAINE 1% 20 ML VIAL (10MG/ML) FOR IV START INTRADERMA PRN (09:15)
[2018-12-19] MEDS ORDERED: ePHEDrine SULFATE/0.9% NACL/PF 50 MG/5 ML SYRINGE IV ONE (09:53)
[2018-12-19] MEDS ORDERED: MIDAZOLAM 2 MG/2 ML VIAL ONE (09:53)
[2018-12-19] MEDS ORDERED: SUCCINYLCHOLINE CHLORIDE VIAL 200 MG/10 ML VIAL IV ONE (09:53)
[2018-12-19] MEDS ORDERED: fentaNYL (PF) 50 MCG/ML 2 ML AMP ONE (09:53)
[2018-12-19] MEDS ORDERED: PROPOFOL 10 MG/ML 20 ML VIAL IV ONE (09:53)
[2018-12-19] MEDS ORDERED: LIDOCAINE 1% INJ 10MG/ML (20 ML MDV) ONE (09:53)
[2018-12-19] MEDS ORDERED: BUPIVACAINE (PF) 0.25% 30 ML VIAL INTRAARTIC ONE ×2 (10:15→10:34)
--- NOTE | 2018-12-19 10:49 | P.OP ---
Date of Procedure: 12/19/18 Preoperative Diagnosis: Internal derangement left knee Postoperative Diagnosis: 1. Tear medial meniscus left knee 2. Grade 2/3 chondromalacia medial femoral condyle left knee 3. Reactive synovitis medial, lateral and suprapatellar compartments left knee Procedure(s) Performed: 1. Arthroscopic partial medial meniscectomy left knee 2. Arthroscopic chondroplasty medial femoral condyle left knee 3. Arthroscopic partial synovectomy medial, lateral and suprapatellar compartments left knee Anesthesia: GETA, local Surgeon: Marcial Alegre Estimated Blood Loss (ml): 5 Pathology: none sent Condition: stable Disposition: PACU Indications for Procedure: 73-year-old patient seen with persistent/progressive left knee pain. After treatment options were discussed, he elected to proceed with arthroscopy. Operative Findings: see description of procedure Description of Procedure: Patient was taken to the operative suite. Patient underwent a general anesthetic by the department of anesthesia. Patient was given preoperative antibiotics. The left lower extremity was placed in a well-padded arthroscopic leg canales. The left leg was prepped and draped in the normal sterile orthopedic fashion. A lateral parapatellar and suprapatellar incision was made. Trochars were inserted. Arthroscopy was initiated. Suprapatellar pouch revealed diffuse thick reactive synovitis. The patellofemoral joint appeared to articulate congruently. There was grade 1/2 chondromalacia of the patella with no osteochondral tears present.. The scope was guided into the medial gutter. No loose bodies or plica were identified. The scope was then guided into the medial compartment. A medial parapatellar incision was made. Trocar inserted followed by probe. There was a complex tear involving the posterior medial meniscus which did extend into the midbody. There was a area of grade 2/3 chondromalacia central weightbearing surface medial femoral condyle with some osteochondral flap tears present. There was thick reactive synovitis anteriorly. I performed a partial medial meniscectomy getting down to stable meniscal tissue. I performed a chondroplasty of the medial femoral condyle getting down to stable osteochondral tissue. I performed a partial synovectomy decompressing the reactive synovitis. The residual meniscus was probed and found to be stable. The residual osteochondral surface was stable. There was good decompression of synovitis. Scope and probe were then guided into the intercondylar notch. Cruciates were identified, probed and found to be stable. The scope and probe were then guided into lateral compartment. The lateral meniscus was probed and found to be stable. There was reactive synovitis anteriorly. There was no significant chondromalacia present. I introduced a motorized shaver and performed a partial synovectomy decompressing the thick reactive synovitis. The shaver was removed. There was good decompression of synovitis. The scope was in guided back into the suprapatellar compartment. I used a motorized shaver into the super patellar compartment. I debrided piecemeal fragments of meniscus I encountered. I performed a partial synovectomy decompressing reactive synovitis. The shaver was removed. I took one more look on the entire knee, no residual debris. Instruments were now removed from the joint. The joint was infiltrated with .25% Marcaine. Steri- Strips were applied to the portal sites. Sterile dressings were applied. The patient was placed into a SHANICE hose. No tourniquet was utilized. The patient was awakened, transferred to a bed and taken to recovery stable satisfactory condition.
[2018-12-19 10:51] VITALS: TEMP 97.3
[2018-12-19] MEDS: HYDROmorphone 0.5 MG/0.5 ML SYRINGE IVP PRN ×2 (11:00→11:05)
[2018-12-19 11:05] VITALS: RESP 16
[2018-12-19] MEDS: MEPERIDINE 50 MG/ML SYRINGE IVP ONE ×2 (11:21→11:30)
[2018-12-19 12:24] VITALS: BP 144/89; PULSE 74
== END 2018-12-19 12:44 | disposition home or self-care (01) ==
LOC: OR 09:01
PROVIDERS: ATTEND Orthopaedic Surgery
DX: S83.232A Complex tear of medial meniscus, current injury, left knee, initial encounter (principal); M94.262 Chondromalacia, left knee; M65.9 Synovitis and tenosynovitis, unspecified; I10 Essential (primary) hypertension; E78.5 Hyperlipidemia, unspecified; K21.9 Gastro-esophageal reflux disease without esophagitis; F17.290 Nicotine dependence, other tobacco product, uncomplicated; Z98.890 Other specified postprocedural states; Z79.899 Other long term (current) drug therapy; X58.XXXA Exposure to other specified factors, initial encounter
CPT/HCPCS: 29881; J2250; J0330; J1100; J2175; J0690; J2405; J2001; J3010; J2704; J1170

== ENCOUNTER → 2022-08-17 | Outpatient (CLI) | payer MEDICARE | END | disposition home or self-care (01) | LOC: LABWHC1 08:57 | PROVIDERS: ATTEND Internal Medicine Endocrinology, Diabetes & Metabolism | DX: C73 Malignant neoplasm of thyroid gland (principal) | CPT/HCPCS: 36415; 84432; 84443; 86800 ==

== ENCOUNTER → 2022-12-22 | Outpatient (CLI) | payer MEDICARE | END | disposition home or self-care (01) | LOC: LABWHC1 10:36 | PROVIDERS: ATTEND Internal Medicine Endocrinology, Diabetes & Metabolism | DX: C73 Malignant neoplasm of thyroid gland (principal) | CPT/HCPCS: 36415; 84432; 84443; 86800 ==

== ENCOUNTER → 2023-06-23 | Outpatient (CLI) | payer MEDICARE ==
--- NOTE | 2023-06-23 12:16 | US ---
EXAMINATION TYPE: US thyroid st tissue head/neck DATE OF EXAM: 06/23/2023 COMPARISON: NONE CLINICAL INDICATION: Male, 78 years old with history of C73 MALIGNANT ZULEYMA OF THYROID GLAND; Patient s tates hx of thyroid cancer. Had thyroidectomy 1 year ago. No new problems or symptoms. Bilateral neck scanned, there are multiple normal appearing lymph nodes seen bilaterally. Largest on the right measures 1.0cm with a 2mm cortex. Largest on the left measures 1.0cm with a 1mm cortex. IMPRESSION: 1. Status post thyroidectomy. 2. No pathologically enlarged lymph nodes
== END | disposition home or self-care (01) ==
LOC: LABWHC1 09:06
PROVIDERS: ATTEND Internal Medicine Endocrinology, Diabetes & Metabolism
DX: C73 Malignant neoplasm of thyroid gland (principal); E89.0 Postprocedural hypothyroidism
CPT/HCPCS: 36415; 76536; 84432; 84443; 86800

== ENCOUNTER → 2024-05-22 | Outpatient (CLI) | payer MEDICARE ==
--- NOTE | 2024-05-22 10:21 | US ---
EXAMINATION TYPE: US thyroid st tissue head/neck DATE OF EXAM: 05/22/2024 COMPARISON: US 06/23/2023 CLINICAL INDICATION: Male, 79 years old with history of C73 MALIGNANT NEOPLASM OF THYROID GLAND; Hx t hyroid cancer. Thyroidectomy. TECHNIQUE: Scanned thyroid fossa. No abnormalities seen. Bilateral neck scanned. Lymph node-appearing area seen right neck: 1.0 x 1.1 x 0.4 cm. IMPRESSION: Changes of total thyroidectomy without evidence for recurrent or residual mass. 2017 ACR TI-RADS LEVEL: *Highest TI-RADS level nodule reported [email or web address] [facility], , 05/22/2024 10:18 AM
== END | disposition home or self-care (01) ==
LOC: RADUSWWP 09:50
PROVIDERS: ATTEND Internal Medicine Endocrinology, Diabetes & Metabolism
DX: C73 Malignant neoplasm of thyroid gland (principal)
CPT/HCPCS: 76536

== ENCOUNTER → 2024-05-22 | Outpatient (CLI) | payer MEDICARE | END | disposition home or self-care (01) | LOC: LABWHC1 08:50 | PROVIDERS: ATTEND Internal Medicine Endocrinology, Diabetes & Metabolism | DX: C73 Malignant neoplasm of thyroid gland (principal) | CPT/HCPCS: 36415; 84432; 84443; 86800 ==